=== PATIENT | male | born 1995 | race Two or more races ===

== ENCOUNTER 2018-04-24 11:34 | Emergency (ER) | payer OTHER ==
[~2018-04-24] VITALS: Ht 167.6 cm; Wt 65.8 kg
[2018-04-24 12:36] VITALS: BP 123/69
[2018-04-24] MEDS ORDERED: LIDOCAINE 1% HCL (LOCAL ANESTH.) INJ 20ML MDV ID ONE (13:00)
[2018-04-24] MEDS ORDERED: TETANUS-DIPTH-ACEL PERTUSSIS 0.5ML SYRG IM ONE (14:00)
[2018-04-24] MEDS ORDERED: cefTRIAXone SOD 1,000 MG VL IM ONE (14:00)
[2018-04-24] MEDS ORDERED: IBUPROFEN 800 MG TAB PO ONE (14:00)
== END 2018-04-24 14:31 | disposition home or self-care (01) ==
LOC: ER 11:39
DX: S62.521A Displaced fracture of distal phalanx of right thumb, initial encounter for closed fracture (principal); S61.011A Laceration without foreign body of right thumb without damage to nail, initial encounter; W31.89XA Contact with other specified machinery, initial encounter; Y93.89 Activity, other specified; Y99.8 Other external cause status; Y92.89 Other specified places as the place of occurrence of the external cause
CPT/HCPCS: 12004; 73140; 90471; 90715; 96372; 99283; J0696; J2001